=== PATIENT | female | born 1955 | race Two or more races ===

== ENCOUNTER 2019-01-06 21:23 | Emergency (ER) | payer OTHER ==
[~2019-01-06] VITALS: Ht 162.6 cm; Wt 98.0 kg
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
--- NOTE | 2019-01-06 22:35 | NUR ---
DR AHMADI AT BEDSIDE
--- NOTE | 2019-01-06 23:17 | NUR ---
Patient discharged to home in stable condition. Written and verbal after care instructions given. Patient verbalizes understanding of instruction.
[2019-01-06 23:25] VITALS: BP 144/94
== END 2019-01-06 23:20 | disposition home or self-care (01) ==
LOC: ER 21:23
DX: T81.89XA Other complications of procedures, not elsewhere classified, initial encounter (principal); I10 Essential (primary) hypertension
CPT/HCPCS: 99283; A4606; Z7502